=== PATIENT | female | born 1970 | race Caucasian/White ===

== ENCOUNTER 2018-07-17 08:42 | Emergency (ER) | payer SELFPAY ==
[2018-07-17] MEDS: METOCLOPRAMIDE 10 MG INJ IV (09:05)
[2018-07-17] MEDS: DIPHENHYDRAMINE 50 MG INJ IV (09:05)
== END 2018-07-17 11:06 | disposition home or self-care (01) ==
LOC: E/R 08:42
DX: F41.9 Anxiety disorder, unspecified (principal); R51 Headache
CPT/HCPCS: 96374; 96375; 99284-25